=== PATIENT | female | born 1940 | race Caucasian/White ===

== ENCOUNTER 2017-09-29 11:26 | Emergency (ER) | payer OTHER ==
[~2017-09-29] VITALS: Ht 162.6 cm; Wt 97.5 kg
[2017-09-29] MEDS ORDERED: LISINOPRIL20 MG PO (11:39)
[2017-09-29] MEDS ORDERED: LIPITOR 20 MG T20 M1 PO (11:40)
[2017-09-29 11:42] LABS: HEMOGLOBIN 11.2 gm/dL (12.0-15.0); MCH 28.5 pg (26.0-34.0); MCV 86.4 fL (80.0-100.0); RBC 3.94 mil/uL (4.20-5.00); WBC 11.7 thou/uL (4.0-11.0)
[2017-09-29 11:50] LABS: CALCIUM 8.9 mg/dL (8.5-10.1); CREATININE 1.3 mg/dL (0.6-1.0); POTASSIUM 4.1 mmol/L (3.5-5.1)
[2017-09-29 11:56] LABS: ALBUMIN 3.6 g/dL (3.4-5.0); TOTAL BILIRUBIN 0.6 mg/dL (<0.1-1.0); TOTAL PROTEIN 8.2 g/dL (6.4-8.2)
[2017-09-29 11:59] LABS: PROTIME 10.5 Seconds (9.3-11.4)
[2017-09-29] MEDS ORDERED: HYDROCODONE-AP1 EAC6 PO (15:57)
[2017-09-29 16:07] VITALS: BP 165/78
== END 2017-09-29 15:30 | disposition home or self-care (01) ==
LOC: ER 11:26
PROVIDERS: Physician Assistant
DX: S22.41XA Multiple fractures of ribs, right side, initial encounter for closed fracture (principal); M25.511 Pain in right shoulder; M25.571 Pain in right ankle and joints of right foot; R91.8 Other nonspecific abnormal finding of lung field; V89.2XXA Person injured in unspecified motor-vehicle accident, traffic, initial encounter; Y93.89 Activity, other specified; Y92.89 Other specified places as the place of occurrence of the external cause; Y99.8 Other external cause status

== ENCOUNTER → 2018-05-07 | Outpatient (CLI) | payer OTHER ==
[~2018-05-07] MED LIST: HYDROCODONE-AP1 EAC6 PO; LIPITOR 20 MG T20 M1 PO; LISINOPRIL20 MG PO
== END ==
LOC: MRI 12:26 → EDSTATUS 14:27
DX: S46.211A Strain of muscle, fascia and tendon of other parts of biceps, right arm, initial encounter (principal); M19.011 Primary osteoarthritis, right shoulder; M75.101 Unspecified rotator cuff tear or rupture of right shoulder, not specified as traumatic; X58.XXXA Exposure to other specified factors, initial encounter; Y93.89 Activity, other specified; Y92.89 Other specified places as the place of occurrence of the external cause; Y99.8 Other external cause status

== ENCOUNTER 2020-04-22 17:59 | Emergency (ER) | payer OTHER ==
[~2020-04-22] VITALS: Ht 167.6 cm; Wt 79.4 kg
[2020-04-22] MEDS ORDERED: SEROQUEL300 MG PO (19:19)
[2020-04-22] MEDS ORDERED: LEVO-T100 MCG PO (19:20)
[2020-04-22] MEDS ORDERED: [UNRECOGNIZED DRUG - OTHER] PO (19:22)
[2020-04-22] MEDS ORDERED: TUMS PO (19:23)
[2020-04-22] MEDS ORDERED: IRBESARTAN75 MG PO (19:24)
[2020-04-22 19:38] LABS: ABSOLUTE NEUTROPHILS 2.4 thou/uL (1.4-8.2); BASOPHILS 0.6 % (0.0-2.0); HEMOGLOBIN 10.1 gm/dL (12.0-15.0); LYMPHOCYTES 50.1 % (24.0-44.0); MCH 30.6 pg (26.0-34.0); MCHC 33.8 g/dL (28.0-37.0); MCV 90.7 fL (80.0-100.0); MONOCYTES 4.9 % (1.0-8.0); PLATELET COUNT 178 thou/uL (150-400); POLYS 43.4 % (36.0-66.0); RBC 3.31 mil/uL (4.20-5.00); WBC 5.6 thou/uL (4.0-11.0)
[2020-04-22 19:47] LABS: URINE BILIRUBIN NEGATIVE (Negative); URINE BLOOD NEGATIVE (Negative); URINE CLARITY CLEAR; URINE COLOR YELLOW; URINE GLUCOSE-RANDOM* 3+ (Negative); URINE KETONES NEGATIVE (Negative); URINE LEUKOCYTES-REFLEX NEGATIVE (Negative); URINE NITRITE-REFLEX NEGATIVE (Negative); URINE PROTEIN (DIPSTICK) NEGATIVE (Negative); URINE UROBILINOGEN 0.2 E.U./dl (0.2-1.0)
[2020-04-22 19:51] LABS: ANION GAP 9 mmol/L (7-16); BUN 30 mg/dL (7-18); CALCIUM 8.7 mg/dL (8.5-10.1); CHLORIDE 100 mmol/L (98-107); CO2 27 mmol/L (21-32); CREATININE 1.7 mg/dL (0.6-1.0); GLUCOSE 215 mg/dL (74-106); POTASSIUM 4.6 mmol/L (3.5-5.1); SODIUM 136 mmol/L (136-145)
[2020-04-22 20:04] LABS: ALBUMIN 3.7 g/dL (3.4-5.0); DIRECT BILIRUBIN 0.2 mg/dL (<0.1-0.2); SGOT 19 U/L (15-37); SGPT 22 U/L (30-65); TOTAL BILIRUBIN 0.5 mg/dL (0.2-1.0); TOTAL PROTEIN 8.2 g/dL (6.4-8.2); TROPONIN-I <0.06 ng/mL (<0.06)
[2020-04-22 22:09] VITALS: BP 147/61
--- NOTE | 2020-04-23 07:37 | EKG ---
[facility] [place] [address] ELECTROCARDIOGRAM REPORT Name: YASIR GAITAN Room #: [facility]#: [id number] Admission: 04/22/20 Attend Phys: Discharge: 04/22/20 Date of : 36 Report #: [id number] THIS REPORT FOR: cc: Eddie Borja MD, Frank W. MD Santiago, Patrick MD [facility] ~ THIS REPORT FOR: //name// [facility] ED Test Date: 2020-04-22 Test Time: 19:14:59 Pat Name: YASIR GAITAN Department: Room: Gender: F Ghost Writer: [place] [id number] : 1940 Requested By: Ethan Saxena Order Number: [id number] MD: Antony Cullen Measurements Intervals [place] Rate: 99 P: 31 HI: 215 QRS: -6 QRSD: 93 T: 43 QT: 350 QTc: 450 Interpretive Statements Sinus rhythm Prolonged HI interval No previous ECG available for comparison Electronically Signed On 04-23-2020 7:36:56 CDT by Antony Cullen [email or web address] <ELECTRONICALLY SIGNED> By: Antony Cullen MD, FAC 04/23/20 0736 13 13 Antony Cullen MD, [facility] /EPI
== END 2020-04-22 22:05 | disposition home or self-care (01) ==
LOC: ER 17:59
PROVIDERS: Emergency Medicine
DX: E11.65 Type 2 diabetes mellitus with hyperglycemia (principal); E86.0 Dehydration; R42 Dizziness and giddiness; I10 Essential (primary) hypertension; Z85.3 Personal history of malignant neoplasm of breast; Z96.651 Presence of right artificial knee joint; Z79.899 Other long term (current) drug therapy